=== PATIENT | male | born 1980 | race Asian ===

== ENCOUNTER 2016-10-05 14:31 | Emergency (ER) | payer OTHER ==
[~2016-10-05] VITALS: Ht 162.6 cm; Wt 97.0 kg
[2016-10-05] MEDS ORDERED: SODIUM CHLORIDE 0.9% 1,000 ML IV ONE (15:27)
[2016-10-05] MEDS ORDERED: ONDANSETRON HCL 4MG/2ML VIAL IV ONE (15:30)
[2016-10-05] MEDS ORDERED: MECLIZINE 25MG TABLET PO ONE (15:30)
[2016-10-05] MEDS ORDERED: DEXAMETHASONE 10MG/ML 1ML VIAL IV ONE (15:30)
[2016-10-05 15:45] LABS: BASOPHILS % 0.8 % (0.0-2.0); EOSINOPHILS % 1.2 % (0.0-5.0); HEMATOCRIT. 48.2 % (42.0-52.0); HEMOGLOBIN. 16.4 g/dL (14.0-18.0); LYMPHOCYTES % 21.6 % (20.0-50.0); MEAN CORPUSCULAR VOLUME 91.2 fL (80.0-94.0); MEAN PLATELET VOLUME 9.8 fl (7.4-10.4); MONOCYTES % 6.3 % (2.0-8.0); NEUTROPHILS % 70.1 % (40.0-76.0); PLATELET 191 x1000/uL (130-400); RED BLOOD CELL COUNT 5.28 mill/uL (4.7-6.1); RED CELL DISTRIBUTION WIDTH 13.3 % (11.6-14.6); WHITE BLOOD COUNT 14.4 x1000/uL (4.5-11.0)
[2016-10-05 15:52] LABS: ANION GAP 12; CALCIUM 8.9 mg/dL (8.5-10.1); CARBON DIOXIDE 29 mEq/L (21-32); CHLORIDE 107 mEq/L (98-107); INDEX HEMOLYSI 2 (1-3); INDEX ICTERIC 1 (1-4); INDEX LIPEMIC 1 (1-3); INR 0.9; MAGNESIUM 2.4 mg/dL (1.8-2.4); PARTIAL THROMBOPLASTIN TIME 26.9 sec (24.0-34.0); PROTHROMBIN TIME 9.9 sec; UREA NITROGEN BLOOD 12 mg/dL (7-21)
[2016-10-05 16:00] LABS: eGFR > 60 mL/min (>60)
[2016-10-05 16:01] LABS: CREATINE KINASE MB FRACTION 1.1 ng/mL (0.5-3.6); NT PRO B-TYPE NATRIURETIC PEP 34 pg/mL (5-125); TROPONIN I < 0.02 ng/mL (0.00-0.04)
[2016-10-05 18:51] VITALS: BP 143/87
== END 2016-10-05 19:19 | disposition home or self-care (01) ==
LOC: ER 14:54
DX: R42 Dizziness and giddiness (principal); R51 Headache; I10 Essential (primary) hypertension
CPT/HCPCS: 36415; 70450; 71010; 80048; 82553; 83735; 83880; 84484; 85025; 85610; 85730; 93005; 96361; 96374; 96375; 99285; J1100; J2405; J7030; Z7610; J8597